=== PATIENT | male | born 2000 | race Caucasian/White ===

== ENCOUNTER 2019-10-30 15:11 | Emergency (ER) | payer SELFPAY ==
[~2019-10-30] VITALS: Ht 190.5 cm; Wt 97.7 kg
[2019-10-30 15:24] VITALS: BP 139/72; TEMP 98.1
[2019-10-30] MEDS ORDERED: FLEXERIL 1010 MG/TAB PO (16:01)
[2019-10-30 16:15] VITALS: PULSE 82
== END 2019-10-30 16:15 | disposition home or self-care (01) ==
LOC: COL.ER 15:11
DX: S16.1XXA Strain of muscle, fascia and tendon at neck level, initial encounter (principal); R40.2410 Glasgow coma scale score 13-15, unspecified time; V43.92XA Unspecified car occupant injured in collision with other type car in traffic accident, initial encounter